=== PATIENT | female | born 1960 | race African-American/Black ===

== ENCOUNTER 2019-05-09 09:36 | Emergency (ER) | payer OTHER, MEDICAID ==
[~2019-05-09] VITALS: Ht 170.2 cm; Wt 80.0 kg
[~2019-05-09 09:36] MED LIST: ASPIRIN; EFFEXOR; LAMICTAL; LIPITOR
[2019-05-09] MEDS ORDERED: SODIUM CHLORIDE 0.9% 1,000 ML IV ONE (09:49)
[2019-05-09 10:23] LABS: EOSINOPHILS % 1.3 % (0.0-5.0); HEMATOCRIT. 38.5 % (36.0-48.0); HEMOGLOBIN. 13.1 g/dL (12.0-16.0); LYMPHOCYTES % 39.8 % (20.0-50.0); MEAN CORPUSCULAR HEMOGLOBIN 31.8 pg (28.0-32.0); MEAN CORPUSCULAR VOLUME 93.5 fL (81.0-99.0); MEAN PLATELET VOLUME 7.8 fl (7.4-10.4); NEUTROPHILS % 49.9 % (40.0-76.0); PLATELET 260 x1000/uL (130-400); RED BLOOD CELL COUNT 4.12 mill/uL (4.2-5.4); RED CELL DISTRIBUTION WIDTH 13.7 % (11.6-14.6)
[2019-05-09 10:31] LABS: CHLORIDE 107 mEq/L (98-107)
[2019-05-09] MEDS ORDERED: METOCLOPRAMIDE HCL 10MG/2ML VIAL IV ONE (11:15)
[2019-05-09] MEDS ORDERED: ACETAMINOPHEN 325MG TABLET PO ONE (11:15)
[2019-05-09 12:15] VITALS: BP 126/74
== END 2019-05-09 12:19 | disposition home or self-care (01) ==
LOC: ER 09:36
DX: G44.209 Tension-type headache, unspecified, not intractable (principal); R07.89 Other chest pain; I10 Essential (primary) hypertension; F12.90 Cannabis use, unspecified, uncomplicated
CPT/HCPCS: 36415; 70450; 71045; 80053; 84484; 85025; 93005; 96361; 96374; 99284; J2765; J7030

== ENCOUNTER 2023-08-13 09:47 | Emergency (ER) | payer OTHER, MEDICAID ==
[~2023-08-13] VITALS: Ht 167.6 cm; Wt 77.0 kg
[2023-08-13 09:49] VITALS: O2SAT 99
[2023-08-13] MEDS ORDERED: ONDANSETRON HCL 4MG/2ML INJ IV STA (10:04)
[2023-08-13] MEDS ORDERED: MORPHINE SULFATE 4 MG/ML CPJ (NOT FOR IM USE) IV STA (10:04)
[2023-08-13 10:27] LABS: BASOPHILS % 0.6 % (0.0-2.0); EOSINOPHILS % 1.9 % (0.0-5.0); HEMATOCRIT. 39.7 % (36.0-48.0); HEMOGLOBIN. 13.5 g/dL (12.0-16.0); MEAN CORPUSCULAR HGB CONC 33.9 g/dL (31.0-37.0); MEAN CORPUSCULAR VOLUME 91.4 fL (81.0-99.0); MEAN PLATELET VOLUME 7.7 fl (7.4-10.4); MONOCYTES % 6.7 % (2.0-8.0); NEUTROPHILS % 48.8 % (40.0-76.0); PLATELET 249 x1000/uL (130-400); RED BLOOD CELL COUNT 4.34 mill/uL (4.2-5.4); RED CELL DISTRIBUTION WIDTH 13.7 % (11.6-14.6); WHITE BLOOD COUNT 5.7 x1000/uL (4.5-11.0)
[2023-08-13 10:48] LABS: CALCIUM 9.2 mg/dL (8.5-10.1); CHLORIDE 110 mEq/L (98-107); INDEX HEMOLYSI 1 (1-3); INDEX ICTERIC 1 (1-4); INDEX LIPEMIC 1 (1-3); POTASSIUM 4.1 mEq/L (3.5-5.1); SODIUM 141 mEq/L (136-145)
[2023-08-13 11:30] LABS: CREATININE 1.1 mg/dL (0.6-1.3); GLUCOSE 101 mg/dL (70-105); UREA NITROGEN BLOOD 11 mg/dL (7-21)
[2023-08-13 11:31] LABS: ALANINE AMINOTRANSFERASE 27 IU/L (13-61); ALBUMIN 3.7 g/dL (3.4-5.0); ASPARTATE AMINOTRANSFERASE 21 IU/L (15-37); BILIRUBIN TOTAL 0.3 mg/dL (0.1-1.0); NT PRO B-TYPE NATRIURETIC PEP 43 pg/mL (5-125); PROTEIN TOTAL 8.1 g/dL (6.0-8.3); TROPONIN I HIGH SENSITIVITY 4 ng/L (<54)
[2023-08-13 11:51] VITALS: BP 128/73; PULSE 69; RESP 18; TEMP 99.3
[2023-08-13 13:54] LABS: TROPONIN I HIGH SENSITIVITY 5 ng/L (<54)
[2023-08-13 14:34] LABS: CARBON DIOXIDE 24 mEq/L (21-32)
== END 2023-08-13 13:17 | disposition home or self-care (01) ==
LOC: ER 09:47
DX: R07.89 Other chest pain (principal); F12.10 Cannabis abuse, uncomplicated; I10 Essential (primary) hypertension; E78.00 Pure hypercholesterolemia, unspecified; J44.1 Chronic obstructive pulmonary disease with (acute) exacerbation; Z88.6 Allergy status to analgesic agent
CPT/HCPCS: 99285; 96374; 71045; 96375; 80053; 83880; 85025; 84484; 36415; 93005; J2405; J2270

== ENCOUNTER 2025-07-13 11:46 | Emergency (ER) | payer OTHER, MEDICAID ==
[~2025-07-13] VITALS: Ht 170.2 cm; Wt 77.0 kg
[2025-07-13 11:48] VITALS: BP 135/83; PULSE 68; RESP 16; TEMP 36.8; O2SAT 98
== END 2025-07-13 14:44 | disposition left against medical advice (07) ==
LOC: ER 11:46
DX: S29.012A Strain of muscle and tendon of back wall of thorax, initial encounter (principal); M54.2 Cervicalgia; I10 Essential (primary) hypertension; J44.9 Chronic obstructive pulmonary disease, unspecified; E78.00 Pure hypercholesterolemia, unspecified; Z88.6 Allergy status to analgesic agent; X58.XXXA Exposure to other specified factors, initial encounter; Y93.89 Activity, other specified; Y92.89 Other specified places as the place of occurrence of the external cause; Y99.8 Other external cause status
CPT/HCPCS: 99283